=== PATIENT | female | born 1960 | race Caucasian/White ===

== ENCOUNTER 2017-11-24 09:59 | Observation (INO) ==
[2017-11-24] MEDS ORDERED: Albuterol 2.5 MG/3 ML NEBULIZER IH ONE (10:22)
[2017-11-24] MEDS ORDERED: Ringers Solution, Lactated 1,000 ML IVC SCH (10:30)
--- NOTE | 2017-11-24 10:59 | Anesthesia Evaluation PreOp ---
Date of Encounter: 11/24/17 Time of Encounter: 11:00 - Past History Planned Operation: sacral colpexy Cardiac History: HTN Pulmonary History: Smoker, COPD (No routine inhaler use.) YARD SWITCHER History: Denies Any Significant HX Other Medical History: GERD Anesthesia History: No Prior Anesthetic Complications, Past Anesthesia ( multiple prior anesthetics without complication) Alcohol Use: none Drug use: none Medications and Allergies Ascorbic Acid [Vitamin C] 1,000 mg PO DAILY 11/24/17 [History] Aspirin [Lo-Dose Aspirin EC] 81 mg PO DAILY 11/24/17 [History] Atorvastatin Calcium [Lipitor] 80 mg PO HS 11/24/17 [History] Calcium Carbonate [Calcium] 600 mg PO DAILY 11/24/17 [History] Cholecalciferol (Vitamin D3) [Vitamin D] 1,000 unit PO DAILY 11/24/17 [History] Cyanocobalamin (Vitamin B-12) [Vitamin B-12] 1,000 mcg SL DAILY 11/24/17 [ History] Fish Oil/Dha/Epa [Fish Oil 1,200 mg Fish Oil] 1 cap PO DAILY 11/24/17 [History] Multivitamin [One Daily Multivitamin] 1 tab PO DAILY 11/24/17 [History] NIFEdipine [Nifedipine ER] 60 mg PO HS 11/24/17 [History] Pyridoxine HCl [Vitamin B-6] 100 mg PO DAILY 11/24/17 [History] 3 Allergy/AdvReac Type Severity Reaction Status Date / Time Penicillins Allergy Hives Verified 11/24/17 10:29 sulfamethoxazole AdvReac See Verified 11/24/17 10:29 [From Bactrim] Comments trimethoprim [From Bactrim] AdvReac See Verified 11/24/17 10:29 Comments - Meds/Allergy Pre-op Review Medications Reviewed: Yes Allergies Reviewed: Yes Beta Blockers on Current Med List: No Anesthesia Results - Imaging EKG: report reviewed (sinus rhythm, mild intraventricular conduction delay) Anesthesia Exam Selected Entries 11/24/17 10:18 11/24/17 10:43 Temperature 97.6 F Respiratory Rate 18 Blood Pressure 128/81 O2 Sat by Pulse Oximetry 96 Laboratory Tests 11/18/17 12:28 WBC 10.1 Hgb 15.1 Hct 46.2 H Plt Count 322 Weight: 80 kg NPO (# of Hours): over 8 hours - HEENT Pupil (Motor): Pupils equal Teeth: Edentulous Oral Opening: Greater than 3 - Cardiac Rhythm: Regular Murmur: None - Pulmonary Breath Sounds: bilateral Clear Respiratory Effort: Symmetrical Anesthesia Assess/Plan ASA Score: 2 Modified Mcleod Scale for Level of Consciousness: Cooperative, oriented, and tranquil Anesthetic Plan: General Monitoring Plan: Standard Monitors Recovery Plan: PACU
[2017-11-24] MEDS ORDERED: Gabapentin 300 MG CAPSULE PO ONE (11:02)
[2017-11-24] MEDS ORDERED: Levofloxacin 500 MG/100 ML 500 MG/100 ML BAG IVPB ONE (11:05)
--- NOTE | 2017-11-24 11:10 | Urology History & Physical ---
Date of Encounter: 11/24/17 Time of Encounter: 11:08 Assessment and Plan (1) Vaginal vault prolapse after hysterectomy Current Visit: Yes Status: Acute proceed with ASCP. all questions answered History of Present Illness Chief complaint: vaginal prolapse HPI: Ms. Briggs is a 57 year old female grade 4 vaginal vault prolapse. here for ASCP Past Med Surg Social Fam HX - Past Medical History Medical history: hyperlipidemia, hypertension Psychiatric history: no psych history - Past Surgical History Surgical History: cholecystectomy, hysterectomy - Social History Smoking Status: Current every day smoker Packs per day: 1ppd Smokeless Tobacco Status: No Alcohol use: none Drug use: none Medications and Allergies Ascorbic Acid [Vitamin C] 1,000 mg PO DAILY 11/24/17 [History] Aspirin [Lo-Dose Aspirin EC] 81 mg PO DAILY 11/24/17 [History] Atorvastatin Calcium [Lipitor] 80 mg PO HS 11/24/17 [History] Calcium Carbonate [Calcium] 600 mg PO DAILY 11/24/17 [History] Cholecalciferol (Vitamin D3) [Vitamin D] 1,000 unit PO DAILY 11/24/17 [History] Cyanocobalamin (Vitamin B-12) [Vitamin B-12] 1,000 mcg SL DAILY 11/24/17 [ History] Fish Oil/Dha/Epa [Fish Oil 1,200 mg Fish Oil] 1 cap PO DAILY 11/24/17 [History] Multivitamin [One Daily Multivitamin] 1 tab PO DAILY 11/24/17 [History] NIFEdipine [Nifedipine ER] 60 mg PO HS 11/24/17 [History] Pyridoxine HCl [Vitamin B-6] 100 mg PO DAILY 11/24/17 [History] 3 Allergy/AdvReac Type Severity Reaction Status Date / Time Penicillins Allergy Hives Verified 11/24/17 10:29 sulfamethoxazole AdvReac See Verified 11/24/17 10:29 [From Bactrim] Comments trimethoprim [From Bactrim] AdvReac See Verified 11/24/17 10:29 Comments Review of Systems - Constitutional no fever(s) - Cardiovascular no chest pain Exam Initial Vital Signs Temp Pulse Resp BP Pulse Ox 97.6 F 71 18 128/81 96 11/24/17 10:18 11/24/17 10:18 11/24/17 10:18 11/24/17 10:18 11/24/17 10:18 - General physical appearance Present: well developed, no distress Urology Results - Labs All other labs normal.
[2017-11-24] MEDS ORDERED: Ondansetron 4 MG/2 ML VIAL ONE (12:13)
[2017-11-24] MEDS ORDERED: Lidocaine -MPF 2% 2 ML VIAL ONE ×2 (12:13)
[2017-11-24] MEDS ORDERED: *HR* Propofol 200 MG/20 ML VIAL IVP ONE (12:13)
[2017-11-24] MEDS ORDERED: *HR* FentaNYL (PF) 100 MCG/2 ML VIAL ONE (12:13)
[2017-11-24] MEDS ORDERED: *HR* Succinylcholine 200 MG/10 ML VIAL IVP ONE (12:13)
[2017-11-24] MEDS ORDERED: Lidocaine -MPF 4% 5 ML AMPUL ONE (12:13)
[2017-11-24] MEDS ORDERED: *HR* Midazolam HCl 2 MG/2 ML VIAL ONE (12:13)
[2017-11-24] MEDS ORDERED: Dexamethasone 4 MG/ML VIAL ONE (12:13)
[2017-11-24] MEDS ORDERED: Neostigmine Methylsulfate 3 MG/3 ML SYRINGE ONE (13:48)
[2017-11-24] MEDS ORDERED: *HR* HYDROmorphone (PF) 1 MG/ML SYRINGE IVP PRN (14:07)
[2017-11-24] MEDS ORDERED: MORPHINE SUL Oral CONC 10 MG/0.5 ML ORAL.SYG SL PRN (14:07)
[2017-11-24] MEDS ORDERED: *HR* Promethazine 25 MG/ML VIAL IVP PRN (14:07)
[2017-11-24] MEDS ORDERED: Isovue-300 50 ML VIAL IVP ONE (15:31)
[2017-11-24] MEDS ORDERED: *HR* Morphine 10 MG/ML VIAL ONE (15:53)
--- NOTE | 2017-11-24 16:30 | Operative Note ---
Date of procedure: 11/24/17 Pre-op diagnosis: Complete vaginal vault prolapse after hysterectomy Post-op diagnosis: same Procedure: Abdominal sacral colpopexy Cystoscopy with right retrograde pyelogram Anesthesia: GETA Surgeon: Rudolph Khalil Was there an diversional therapist's assistant present: No Estimated blood loss (cc): 150 Specimen: None Condition: stable Disposition: PACU Procedure in Detail: Patient was brought back to the operating room positioned supine on the operating table. Anesthesia was applied with a without complication. Patient was properly identified. She was moved into dorsolithotomy. She was prepped and draped in sterile fashion. Timeout was performed confirming the proper patient and procedure. Sal catheter was placed with return of clear urine. Patient had complete vaginal vault prolapse with the apex of the vagina completely out of the vaginal orifice. A Pfannenstiel incision was made with a 15 blade scalpel. Underlying tissue dissected with cautery Bovie. I opened the fascia with the Bovie. Rectus muscle was split in the midline and I bluntly entered the peritoneum. The Bookwalter retractor was assembled and laps were used to pack the bowel superiorly. This exposed the pelvis including the sacral promontory. The peritoneal reflection over the bladder was incised at the junction of the vaginal vault. Sharp dissection was used to dissect the bladder away from the anterior vagina along the vesicovaginal septum. No obvious bladder injury occurred during this step. Dissection continued over the cervix and posteriorly to separate the vagina from the rectum along the rectovaginal septum. An EEA was in the vagina to aid in dissection and maneuverability of the vagina. The retroperitoneal space was then exposed by incising the posterior peritoneum from the level of the rectovaginal septum cranially to the sacral promontory. I identified the right ureter which did course more medially than expected. I was able to dissect this laterally to avoid injury or involvement with the case. The initial concern regarding changing the normal vaginal axis through fixation to the promontory has not been shown to be a problem. A [employer] polypropylene graft was obtained and trimmed to size. Eight 2-0 Prolene sutures were pre-placed. 4 were located on the anterior aspect of the vagina and cervix. 4 additional sutures were placed posterior on the cervix and as posterior as the dissection would allow. The 4 anterior sutures were secured to one arm of the polypropylene graft. The 4 posterior sutures were secured to the other arm. Excess mesh material was excised and it appeared the graft was well secured to the anterior and posterior aspect of the vagina. Two additional Prolene sutures were preplaced at the sacral promontory. These sutures were threaded through the graft to secure the third arm to the sacral promontory. The graft was positioned along the retroperitoneal space cranial to the sacral promontory. It was sized to allow for a tension-free approximation The peritoneal reflection is closed over the graft using a 2-0 Vicryl isolating the graft in a retroperitoneal location. I was able to identify the right ureter and avoided excessive dissection or injury to the ureter. A Surgicel was placed in the retroperitoneum before closing A cystoscopy was performed prior to closing the patient. The bladder was normal. I carefully examined the entire bladder and noted no injury from the procedure. Identified both ureters and the 5 [place] ureteral catheter passed without resistance up the left ureter. I had some difficulty placing the 5 [place] on the right side and elected to bring the C-arm in to the room. A retrograde pyelogram confirmed a somewhat tortuous ureter but there was no filling defects, injury, hydroureter or extravasation of contrast. The contrast was seen flowing into the kidney without resistance. The Bookwalter and all packing were removed. Counts were confirmed to be correct 3. The rectus muscle was closed using a running 0 Vicryl suture. The fascia was closed with a #1 looped PDS. Dayan's with a 2-0 Vicryl and the skin with 4-0 Monocryl and Steri-Strips.
--- NOTE | 2017-11-24 17:09 | Anesthesia Evaluation Post Op ---
Date of Encounter: 11/24/17 Time of Encounter: 17:05 - Vital Signs Vital Signs: Vital Signs - Last 8 Hours Temp Pulse Resp BP Pulse Ox 11/24/17 16:56 97.5 F L 82 16 122/81 94 11/24/17 16:46 77 16 126/79 94 11/24/17 16:36 75 18 124/83 97 11/24/17 16:26 98.1 F 64 18 121/82 98 11/24/17 13:42 97.6 F 71 18 128/81 96 11/24/17 10:43 18 128/81 96 11/24/17 10:18 97.6 F 71 18 128/81 96 Intake and Output 11/24/17 11/24/17 11/24/17 07:59 15:59 23:59 Output Total 425 / 425 Balance -425 / -425 Output: Urine 0 / 0 Estimated Blood Loss 150 / 150 Urine Amount (Catheter) 275 / 275 Other: Weight 80.286 kg Patient Weight 11/24/17 23:59 Weight 80.286 kg - Lungs Lungs: Clear Ascult./Percussion - Airway Airway: Non-obstructed - Cardiovascular Regular Rate, Baseline Rhythm - Mental Status Mental Status: Alert & Oriented, Answers Appropriately, Baseline Status - Pain Pain Scale: 4 (tolerable with pain meds) Pain Scale used: Numeric (1 - 10) - Nausea Vomiting Nausea Vomiting: Not Present - Hydration Hydration: Tolerates oral liquids - Discharge PostOp Status: Transfer Patient to floor
[2017-11-24] MEDS ORDERED: Ondansetron 4 MG/2 ML VIAL IVP PRN (18:05)
[2017-11-24] MEDS ORDERED: Naloxone 0.4 MG/ML INJ IVP PRN (18:05)
[2017-11-24] MEDS ORDERED: OXYCODONE Oral CONC 10 MG/0.5 ML ORAL.SYG SL PRN (18:05)
[2017-11-24] MEDS ORDERED: *HR* Promethazine 25 MG/ML VIAL IV PRN (18:05)
[2017-11-24] MEDS ORDERED: *HR* Belladonna Alkaloids/Opium 60 MG RECTAL SUPPOSITORY RC PRN (18:05)
[2017-11-24] MEDS ORDERED: Ketorolac 15 MG/ML VIAL IVP PRN (18:05)
[2017-11-24] MEDS ORDERED: 0.9 % Sodium Chloride 1,000 ML IVC SCH (18:05)
[2017-11-24] MEDS: OXYCODONE Oral CONC 10 MG/0.5 ML ORAL.SYG SL PRN (18:55)
[2017-11-24] MEDS: NIFEdipine XL (24 HR) 60 MG TAB.ER.24 PO SCH (20:26)
[2017-11-24] MEDS: CeFAZolin Premix DUPLEX 2,000 MG/50 ML BAG IVPB SCH (23:36)
[2017-11-25] MEDS: OXYCODONE Oral CONC 10 MG/0.5 ML ORAL.SYG SL PRN (04:27)
[2017-11-25 05:27] LABS: Basophils % 0.1 %; Hematocrit 40.2 % (35.3-44.9); Immature Granulocytes % 0.6 % (0-4); Lymphocytes # 1.3 K/mcL (0.6-4.6); Lymphocytes % 8.1 %; Mean Corpuscular HGB Conc 32.6 g/dL (31.6-35.5); Mean Corpuscular Hemoglobin 31.1 pg (28.0-33.3); Mean Corpuscular Volume 95.5 fL (83.0-100.0); Mean Platelet Volume 11.1 fL (9.4-12.4); Platelet Count 307 K/mcL (140-400); Red Blood Count 4.21 M/mcL (3.82-4.97); Red Cell Distribution Width 14.4 % (11.5-14.5); Segmented Neutrophils % 85.2 %
[2017-11-25 05:30] LABS: Hemoglobin 13.1 g/dL (11.5-15.4); Neutrophils # 13.6 K/mcL (1.6-8.9)
[2017-11-25 06:05] LABS: BUN/Creatinine Ratio 19 (6-26); Blood Urea Nitrogen 13 mg/dL (6-20); Calcium 8.8 mg/dL (8.6-10.3); Carbon Dioxide 24 mEq/L (23-29); Chloride 109 mEq/L (98-107); Glucose 134 mg/dL (70-105); Osmolality,Calculated 288 (280-300); Sodium 138 mEq/L (136-145); eGFR For African Americans > 60 (> 60); eGFR For Non-African Americans > 60 (> 60)
--- NOTE | 2017-11-25 07:45 | Urology Progress Note ---
Date of Encounter: 11/25/17 Time of Encounter: 07:42 - Assessment and Plan (1) Vaginal vault prolapse after hysterectomy Current Visit: Yes Status: Resolved Assessment and plan: remove aguayo cath. ambulate. continue current diet. labs ok. wbc unconcerning. Progress Note Narrative: pt doing "OK" expected pain. no vomiting. Objective Initial Vital Signs Temp Pulse Resp BP Pulse Ox 97.6 F 71 18 128/81 96 11/24/17 10:18 11/24/17 10:18 11/24/17 10:18 11/24/17 10:18 11/24/17 10:18 - General physical appearance Present: no distress - Abdomen Present: soft, tender - Genitourinary Urine Appearance: Present: Clear - Labs 11/25/17 04:37 11/25/17 04:37 Diabetes panel 11/25/17 Range/Units 04:37 Sodium 138 (136-145) mEq/L Potassium 4.0 (3.5-5.1) mEq/L Chloride 109 H (98-107) mEq/L Carbon Dioxide 24 (23-29) mEq/L BUN 13 (6-20) mg/dL Creatinine 0.70 (0.60-1.20) mg/dL Glucose 134 H (70-105) mg/dL Calcium 8.8 (8.6-10.3) mg/dL Calcium panel 11/25/17 Range/Units 04:37 Calcium 8.8 (8.6-10.3) mg/dL Pituitary panel 11/25/17 Range/Units 04:37 Sodium 138 (136-145) mEq/L Potassium 4.0 (3.5-5.1) mEq/L Chloride 109 H (98-107) mEq/L Carbon Dioxide 24 (23-29) mEq/L BUN 13 (6-20) mg/dL Creatinine 0.70 (0.60-1.20) mg/dL Glucose 134 H (70-105) mg/dL Calcium 8.8 (8.6-10.3) mg/dL Adrenal panel 11/25/17 Range/Units 04:37 Sodium 138 (136-145) mEq/L Potassium 4.0 (3.5-5.1) mEq/L Chloride 109 H (98-107) mEq/L Carbon Dioxide 24 (23-29) mEq/L BUN 13 (6-20) mg/dL Creatinine 0.70 (0.60-1.20) mg/dL Glucose 134 H (70-105) mg/dL Calcium 8.8 (8.6-10.3) mg/dL - VTE Documentation of Mechanical Device: Intermittent pneumatic compression device Consult Discharge Plan - Plan Referrals: Vaibhav Coffman MD [Primary Care Provider] -
[2017-11-25] MEDS ORDERED: Famotidine 20 MG TABLET PO PRN (07:48)
[2017-11-25] MEDS ORDERED: Nicotine 14 MG PATCH.TD24 TD PRN (07:49)
[2017-11-25] MEDS: CeFAZolin Premix DUPLEX 2,000 MG/50 ML BAG IVPB SCH ×2 (09:34→16:47)
[2017-11-25] MEDS ORDERED: Bisacodyl 10 MG RECTAL SUPPOSITORY RC PRN (12:29)
[2017-11-25] MEDS: *HR* HYDROcodone/Acet 5/325 mg TABLET PO PRN ×2 (16:47→22:25)
[2017-11-25] MEDS: NIFEdipine XL (24 HR) 60 MG TAB.ER.24 PO SCH (22:25)
[2017-11-26] MEDS: *HR* HYDROcodone/Acet 5/325 mg TABLET PO PRN (02:29)
[2017-11-26] MEDS ORDERED: Ibuprofen 800 MG TABLET PO PRN (07:09)
--- NOTE | 2017-11-26 07:09 | Urology Progress Note ---
Date of Encounter: 11/26/17 Time of Encounter: 07:07 - Assessment and Plan (1) Vaginal vault prolapse after hysterectomy Current Visit: Yes Status: Resolved Assessment and plan: We'll change her pain medication around today. If pain controlled at the end of the day will be able to activate discharge. Vital signs stable. Saturations dropped to 89% after ambulating - likely because of smoking history. Progress Note Narrative: Some pain control issues after switching to hydrocodone. Tolerating liquids well. Still no flatus. Able to ambulate well. No issues with urination. Objective Initial Vital Signs Temp Pulse Resp BP Pulse Ox 97.6 F 71 18 128/81 96 11/24/17 10:18 11/24/17 10:18 11/24/17 10:18 11/24/17 10:18 11/24/17 10:18 - General physical appearance Present: no distress - Abdomen Present: soft - Labs 11/25/17 04:37 11/25/17 04:37 Appropriate tenderness in the abdomen. Nonacute. Soft with bowel sounds - VTE Documentation of Mechanical Device: Intermittent pneumatic compression device Consult Discharge Plan - Plan Referrals: Vaibhav Coffman MD [Primary Care Provider] -
--- NOTE | 2017-11-26 07:14 | Discharge Summary ---
Date of Encounter: 11/26/17 Time of Encounter: 07:11 - Discharge Diagnosis (1) Vaginal vault prolapse after hysterectomy Priority: Primary Status: Resolved - Discharge Medications Prescriptions: OxyCODONE/APAP 5/325 [Percocet 5/325 MG] 1 each PO Q4HR PRN 7 Days #20 tablet PRN Reason: Mild To Moderate Pain Ibuprofen [Motrin] 800 mg PO Q8HR PRN #20 tablet PRN Reason: continued pain after percocet Bisacodyl [Dulcolax] 5 mg PO DAILY #30 tablet Home Medications: Ascorbic Acid [Vitamin C] 1,000 mg PO DAILY 11/24/17 [History] Aspirin [Lo-Dose Aspirin EC] 81 mg PO DAILY 11/24/17 [History] Atorvastatin Calcium [Lipitor] 80 mg PO HS 11/24/17 [History] Calcium Carbonate [Calcium] 600 mg PO DAILY 11/24/17 [History] Cholecalciferol (Vitamin D3) [Vitamin D3] 1,000 unit PO DAILY 11/24/17 [History] Cyanocobalamin (Vitamin B-12) [Vitamin B-12] 1,000 mcg SL DAILY 11/24/17 [ History] Fish Oil/Dha/Epa [Fish Oil 1,200 mg Fish Oil] 1 cap PO DAILY 11/24/17 [History] Multivitamin [One Daily Multivitamin] 1 tab PO DAILY 11/24/17 [History] NIFEdipine [Nifedipine ER] 60 mg PO HS 11/24/17 [History] Pyridoxine HCl [Vitamin B-6] 100 mg PO DAILY 11/24/17 [History] Bisacodyl [Dulcolax] 5 mg PO DAILY #30 tablet 11/26/17 [Rx] Ibuprofen [Motrin] 800 mg PO Q8HR PRN #20 tablet 11/26/17 [Rx] OxyCODONE/APAP 5/325 [Percocet 5/325 MG] 1 each PO Q4HR PRN 7 Days #20 tablet [Rx] Allergies/Adverse Reactions: 3 Allergy/AdvReac Type Severity Reaction Status Date / Time Penicillins Allergy Hives Verified 11/24/17 10:29 sulfamethoxazole AdvReac See Verified 11/24/17 10:29 [From Bactrim] Comments trimethoprim [From Bactrim] AdvReac See Verified 11/24/17 10:29 Comments - Impressions ITS Impressions Fluoroscopy 11/24/17 00:00 IMPRESSION: Intraprocedural fluoroscopic spot images as above. See separate procedure report for more information. D/ / William Davis MD / William Davis MD Interpreting Provider: William Davis MD X-Ray 11/24/17 00:00 IMPRESSION: Intraprocedural fluoroscopic spot images as above. See separate procedure report for more information. D/ / William Davis MD / William Davis MD Interpreting Provider: William Davis MD Date of admission: 11/25/17 21:37 Primary care physician: Vaibhav Coffman MD Discharging clinician: Rudolph Khalil Anticipated date of discharge: 11/26/17 - Patient Status Disposition: Home, Self-Care Condition: Good Functional capacity at discharge: independent ambulation Overall status at discharge: patient is progressing back to baseline - Discharge Instructions Follow Up With: Vaibhav Coffman MD [Primary Care Provider] - Rudolph Khalil MD [Partnered Physician] - (2-4 weeks) Additional Instructions: Okay to shower. No driving for at least 2 weeks. Also needs to be off pain medication prior to driving Okay to walk for exercise. Avoid heavy lifting, heavy activity and straining. Take stool softeners daily to prevent constipation. Okay to stop stool softeners if loose stools or diarrhea Stay hydrated. Patient may not have an appetite for up to 4 weeks. This is not concerning Okay to leave incision open to air. Leave Steri-Strips in place until they fall off Call if excessive abdominal pain. Intractable nausea vomiting. Fever over 101. - Diet and Activity Activity: other Diet: advance to your usual diet - Hospital Course Hospital course: Ms. Briggs is a 57 year old female postoperative day #2 abdominal sacral colpopexy. She has done fairly well in the postoperative period. Vital signs remained stable. Small drop in oxygen saturations with ambulation. Labs on postop day 1 unconcerning. Patient ambulating and urinating without difficulty. Discharged likely today his pain better control - Time Spent with Patient Total time spent providing and/or coordinating discharge services: Exam Initial Vital Signs Temp Pulse Resp BP Pulse Ox 97.6 F 71 18 128/81 96 11/24/17 10:18 11/24/17 10:18 11/24/17 10:18 11/24/17 10:18 11/24/17 10:18 - General physical appearance Present: well developed, no distress - Additional Findings Abdomen soft and nonacute - VTE Documentation of Mechanical Device: Intermittent pneumatic compression device
[2017-11-26] MEDS: *HR* OxyCODONE/APAP 5/325 TABLET PO PRN ×2 (08:30→12:28)
[2017-11-26 11:25] VITALS: BP 123/79
== END 2017-11-26 15:02 | disposition home or self-care (01) ==
LOC: 3ANU 09:59 → SAMDAY 09:59 → 3ANU 17:20
PROVIDERS: ADMIT Urology; ATTEND Urology